=== PATIENT | male | born 1965 | race Hispanic/Latino ===

== ENCOUNTER 2018-02-25 15:25 | Outpatient (CLI) | payer OTHER ==
--- NOTE | 2018-02-25 17:26 | CT ---
CT OF THE ABDOMEN AND PELVIS WITHOUT IV CONTRAST: Date: 02/25/18 INDICATION: Right flank pain. FINDINGS: There is mild right hydronephrosis. There is a 3.4 mm stone within the proximal right ureter. No pearl tional stone is evident within the renal collecting systems. There is a small, sub-4 mm pulmonary nodule within the right lower lobe. Unopacified liver, spleen, pancreas, and adrenal glands appear within normal limits. There is a normal appendix in the right lower quadrant. The prostate is mildly enlarged. Colon appears within normal limits. There are mild vascular calcifications noted involving the abdominopelvic vasculature. No definite acute osseous abnormality is evident. There is scattered degenerative and osteoarthritic change. IMPRESSION: 3.4 mm proximal right ureteral calculus causing mild right hydronephrosis. POS: TERE
== END 2018-02-25 15:26 | disposition home or self-care (01) ==
LOC: BICCT 15:25
PROVIDERS: ATTEND Family Medicine
DX: R10.9 Unspecified abdominal pain (principal); N20.1 Calculus of ureter; N13.30 Unspecified hydronephrosis
CPT/HCPCS: 74176

== ENCOUNTER 2018-03-24 15:54 | Outpatient (CLI) | payer OTHER ==
--- NOTE | 2018-03-24 17:15 | RAD ---
FRONTAL VIEW ABDOMEN/KUB: 03/24/18 INDICATION: History of flank pain, calculus of ureter. FINDINGS: The prior small right ureteral calculus is not discretely visualized. There is a punctate density ove rlying the lower pole of the right renal shadow which may relate to urolithiasis. Osseous degenerativ e change is present. IMPRESSION: 1. No calculi is seen overlying the expected course of the right ureter. Correlate for history o f interval passage of prior right ureteral stone. 2. Punctate density overlying the lower pole right kidney could reflect punctate urolithiasis. POS: TERE
== END 2018-03-24 15:55 | disposition home or self-care (01) ==
LOC: BICRAD 15:54
PROVIDERS: ATTEND Urology
DX: N20.1 Calculus of ureter (principal); N28.89 Other specified disorders of kidney and ureter
CPT/HCPCS: 74018